=== PATIENT | male | born 1950 | race Caucasian/White ===

== ENCOUNTER 2018-09-11 07:57 | Day surgery (SDC) | payer MEDICARE, OTHER ==
[2018-09-11] MEDS ORDERED: MIDAZOLAM 2 MG/2 ML VIAL IVP ONE (07:58)
[2018-09-11] MEDS ORDERED: HYDROmorphone 1 MG/ML SYRINGE IM ONE (07:58)
[2018-09-11] MEDS ORDERED: LACTATED RINGERS 1,000 ML IV ONE (08:28)
[2018-09-11 10:15] VITALS: BP 92/62
== END 2018-09-11 07:58 | disposition home or self-care (01) ==
LOC: SDS 07:57
PROVIDERS: ATTEND Internal Medicine Gastroenterology
PROC: 0DBN8ZZ Excision of Sigmoid Colon, Via Natural or Artificial Opening Endoscopic (ICD-10-PCS; 2018-09-11)
PROC: 0DBM8ZZ Excision of Descending Colon, Via Natural or Artificial Opening Endoscopic (ICD-10-PCS; principal; 2018-09-11 09:15)
DX: Z12.11 Encounter for screening for malignant neoplasm of colon (principal); D12.4 Benign neoplasm of descending colon; D12.5 Benign neoplasm of sigmoid colon; K57.30 Diverticulosis of large intestine without perforation or abscess without bleeding; K63.89 Other specified diseases of intestine; I10 Essential (primary) hypertension; G47.30 Sleep apnea, unspecified; E66.9 Obesity, unspecified; Z68.37 Body mass index [BMI] 37.0-37.9, adult; E78.5 Hyperlipidemia, unspecified; M17.10 Unilateral primary osteoarthritis, unspecified knee; M25.511 Pain in right shoulder; R61 Generalized hyperhidrosis; Z87.891 Personal history of nicotine dependence; H93.19 Tinnitus, unspecified ear
CPT/HCPCS: 45380; J1170; J7120

== ENCOUNTER 2020-03-02 14:06 | Outpatient (CLI) | payer MEDICARE, OTHER ==
--- NOTE | 2020-03-02 16:34 | XRAY Report ---
PROCEDURE: Shoulder 3 View RT INDICATIONS: POST-OP R SHOULDER REPLACEMENT TECHNIQUE: 3 views of the shoulder were acquired. COMPARISON: None. FINDINGS: Bones: Postsurgical changes are seen from a conventional total shoulder arthroplasty. There is grzegorz l alignment without signs of loosening. No acute fracture is identified. No significant heterotopic o ssification is seen. The included ribs are grossly intact. Soft tissues: No suspicious soft tissue calcifications. IMPRESSION: Right total shoulder arthroplasty with expected alignment. Reviewed by: Dani Melvin MD on 03/02/2020 4:32 PM PST Approved by: Dani Melvin MD on 03/02/2020 4:32 PM PST Station ID: [id number]
== END 2020-03-02 14:07 | disposition home or self-care (01) ==
LOC: DI.N 14:06
PROVIDERS: ATTEND Internal Medicine
DX: Z96.611 Presence of right artificial shoulder joint (principal)

== ENCOUNTER 2020-04-13 08:04 | Outpatient (CLI) | payer MEDICARE, OTHER ==
[2020-04-13 13:02] LABS: BASOPHILS % (AUTO) 0.6 %; EOSINOPHILS # (AUTO) 0.4 10^3/uL (0.0-0.7); EOSINOPHILS % (AUTO) 5.4 %; HGB - HEMOGLOBIN 14.9 g/dL (14.0-18.0); LYMPHOCYTES # (AUTO) 1.4 10^3/uL (1.5-3.5); LYMPHOCYTES % (AUTO) 21.5 %; MEAN CORPUSCULAR HEMOGLOBIN 31.5 pg (27.0-31.0); MEAN CORPUSCULAR HGB CONC 33.4 g/dL (32.0-36.0); MEAN CORPUSCULAR VOLUME 94.3 fL (80.0-94.0); MEAN PLATELET VOLUME 10.8 fL (7.4-11.4); MONOCYTES # (AUTO) 0.6 10^3/uL (0.0-1.0); MONOCYTES % (AUTO) 9.4 %; NEUTROPHILS # (AUTO) 4.1 10^3/uL (1.5-6.6); NEUTROPHILS % (AUTO) 62.5 %; PLT - PLATELET COUNT 226 10^3/uL (130-450); RED BLOOD COUNT 4.73 10^6/uL (4.70-6.10); RED CELL DISTRIBUTION WIDTH 13.1 % (12.0-15.0); WHITE BLOOD COUNT 6.6 x10^3/uL (4.8-10.8)
[2020-04-13 13:34] LABS: ALBUMIN 4.3 g/dL (3.2-5.5); ALBUMIN/GLOBULIN RATIO 1.3 (1.0-2.2); ALKALINE PHOSPHATASE 51 IU/L (42-121); ALT ALANINE AMINOTRANSFERASE 30 IU/L (10-60); AST ASPARTATE AMINOTRANSFERASE 30 IU/L (10-42); BILIRUBIN,TOTAL 0.5 mg/dL (0.2-1.0); BUN - BLOOD UREA NITROGEN 18 mg/dL (6-20); CALCIUM 9.5 mg/dL (8.5-10.3); CARBON DIOXIDE - CO2 23 mmol/L (21-32); CHLORIDE 107 mmol/L (101-111); CHOL/HDL RATIO 3.9 (<5.0); CHOLESTEROL 155 mg/dL; CREATININE 1.1 mg/dL (0.6-1.2); GLUCOSE 110 mg/dL (70-100); HDL CHOLESTEROL 40 mg/dL; LDL CHOLESTEROL,CALCULATED 84 mg/dL; LDL/HDL RATIO 2.1 (<3.6); SODIUM 140 mmol/L (135-145); TOTAL PROTEIN 7.6 g/dL (6.7-8.2); VLDL CHOLESTEROL 31 mg/dL
== END 2020-04-13 08:05 | disposition home or self-care (01) ==
LOC: LAB.N 08:04
PROVIDERS: ATTEND Internal Medicine
DX: I10 Essential (primary) hypertension (principal); Z12.5 Encounter for screening for malignant neoplasm of prostate; E78.5 Hyperlipidemia, unspecified
CPT/HCPCS: 36415; 80053; 80061; 84443; 85025; G0103; 83721; 84153

== ENCOUNTER 2020-09-22 08:34 | Outpatient (CLI) | payer MEDICARE, OTHER | END 2020-09-22 23:59 | disposition home or self-care (01) | LOC: LAB.N 08:34 | PROVIDERS: ATTEND Nurse Practitioner | DX: R31.9 Hematuria, unspecified (principal) | CPT/HCPCS: 87086; 87181 ==

== ENCOUNTER 2021-05-03 07:05 | Outpatient (CLI) | payer MEDICARE, OTHER ==
[2021-05-03 12:03] LABS: BASOPHILS # (AUTO) 0.1 10^3/uL (0.0-0.1); BASOPHILS % (AUTO) 0.8 %; EOSINOPHILS # (AUTO) 0.4 10^3/uL (0.0-0.7); EOSINOPHILS % (AUTO) 5.6 %; HCT - HEMATOCRIT 47.5 % (42.0-52.0); HGB - HEMOGLOBIN 15.6 g/dL (14.0-18.0); LYMPHOCYTES # (AUTO) 1.4 10^3/uL (1.5-3.5); LYMPHOCYTES % (AUTO) 21.3 %; MEAN CORPUSCULAR HEMOGLOBIN 31.8 pg (27.0-31.0); MEAN CORPUSCULAR HGB CONC 32.8 g/dL (32.0-36.0); MEAN CORPUSCULAR VOLUME 96.7 fL (80.0-94.0); MEAN PLATELET VOLUME 10.4 fL (7.4-11.4); MONOCYTES # (AUTO) 0.6 10^3/uL (0.0-1.0); MONOCYTES % (AUTO) 9.6 %; NEUTROPHILS # (AUTO) 4.1 10^3/uL (1.5-6.6); NEUTROPHILS % (AUTO) 62.5 %; PLT - PLATELET COUNT 229 10^3/uL (130-450); RED BLOOD COUNT 4.91 10^6/uL (4.70-6.10); RED CELL DISTRIBUTION WIDTH 12.7 % (12.0-15.0); WHITE BLOOD COUNT 6.6 x10^3/uL (4.8-10.8)
[2021-05-03 12:33] LABS: ALBUMIN 4.6 g/dL (3.2-5.5); ALBUMIN/GLOBULIN RATIO 1.5 (1.0-2.2); ALKALINE PHOSPHATASE 62 IU/L (42-121); ALT ALANINE AMINOTRANSFERASE 32 IU/L (10-60); AST ASPARTATE AMINOTRANSFERASE 35 IU/L (10-42); BILIRUBIN,TOTAL 0.7 mg/dL (0.2-1.0); BUN - BLOOD UREA NITROGEN 20 mg/dL (6-20); CALCIUM 9.8 mg/dL (8.5-10.3); CARBON DIOXIDE - CO2 29 mmol/L (21-32); CHLORIDE 101 mmol/L (101-111); CHOL/HDL RATIO 2.8 (<5.0); CHOLESTEROL 131 mg/dL; CREATININE 1.2 mg/dL (0.6-1.2); GFR - MDRD 60 (>89); GLUCOSE 102 mg/dL (70-100); HDL CHOLESTEROL 46 mg/dL; LDL CHOLESTEROL,CALCULATED 73 mg/dL; LDL/HDL RATIO 1.6 (<3.6); POTASSIUM 4.1 mmol/L (3.5-5.0); SODIUM 138 mmol/L (135-145); TOTAL PROTEIN 7.7 g/dL (6.7-8.2); TRIGLYCERIDES 62 mg/dL; VLDL CHOLESTEROL 12 mg/dL
== END 2021-05-03 07:06 | disposition home or self-care (01) ==
LOC: LAB.N 07:05
PROVIDERS: ATTEND Internal Medicine
DX: E78.5 Hyperlipidemia, unspecified (principal); N40.1 Benign prostatic hyperplasia with lower urinary tract symptoms; I10 Essential (primary) hypertension
CPT/HCPCS: 36415; 80053; 80061; 83721; 84153; 85025

== ENCOUNTER 2021-08-09 07:08 | Outpatient (CLI) | payer MEDICARE, OTHER ==
--- NOTE | 2021-08-09 08:33 | XRAY Report ---
PROCEDURE: Lumbar Spine Complete INDICATIONS: BACK PX TECHNIQUE: 5 views of the lumbar spine were acquired. COMPARISON: None. FINDINGS: Bones: 5 [id number] vertebrae are present. Osteophytes are seen at multiple levels. There is d isc space narrowing at L1-2, L2-3, L4-5, and L5-S1. Facet arthrosis at L4-5 and L5-S1. There is a lar ge fused osteophyte on the right at L1-2. No vertebral body height loss. The sacroiliac joints are no rmal. Soft tissues: Overlying bowel gas pattern is normal. No suspicious soft tissue calcifications. IMPRESSION: 1. Multilevel disc disease. 2. Multilevel degenerative changes with osteophytes and facet arthrosis as above. 2. No acute osseous abnormality. Reviewed by: Dagoberto Rowland on 08/09/2021 8:32 AM PDT Approved by: Dagoberto Rowland on 08/09/2021 8:32 AM PDT Station ID: [id number]
== END 2021-08-09 07:09 | disposition home or self-care (01) ==
LOC: DI.N 07:08
PROVIDERS: ATTEND Nurse Practitioner
DX: M47.816 Spondylosis without myelopathy or radiculopathy, lumbar region (principal); M47.817 Spondylosis without myelopathy or radiculopathy, lumbosacral region

== ENCOUNTER 2021-10-05 13:30 | Outpatient (CLI) | payer MEDICARE, OTHER ==
[2021-10-05 17:56] LABS: BILIRUBIN,URINE NEGATIVE (NEGATIVE); GLUCOSE, URINE (UA) NEGATIVE (NEGATIVE); KETONES,URINE (UA) NEGATIVE (NEGATIVE); LEUKOCYTE ESTERASE, URINE NEGATIVE (NEGATIVE); NITRITE,URINE NEGATIVE (NEGATIVE); OCCULT BLOOD,URINE NEGATIVE (NEGATIVE); PROTEIN,URINE NEGATIVE (NEGATIVE); UROBILINOGEN,URINE 0.2 (NORMAL) E.U./dL (NORMAL)
[2021-10-05 17:57] LABS: CLARITY,URINE CLEAR (CLEAR)
[2021-10-05 17:58] LABS: PSA FREE 0.554 ng/mL (0.16-2.81)
[2021-10-05 17:59] LABS: PSA TOTAL 1.613 ng/mL (0.000-2.000)
[2021-10-05 18:14] LABS: BACTERIA,URINE None Seen /HPF (None Seen); RBC,URINE 0-5 /HPF (0-5); SQUAMOUS EPITHELIAL CELL,UR FEW Squamous (<= Few); WBC,URINE 0-3 /HPF (0-3)
== END 2021-10-05 13:31 | disposition home or self-care (01) ==
LOC: LAB.N 13:30
PROVIDERS: ATTEND Internal Medicine
DX: R97.20 Elevated prostate specific antigen [PSA] (principal)
CPT/HCPCS: 36415; 81001; 84153; 84154; 87086

== ENCOUNTER 2022-05-19 10:38 | Outpatient (CLI) | payer MEDICARE, OTHER ==
[2022-05-19 11:31] VITALS: BP 120/72
--- NOTE | 2022-05-19 11:31 | SLEEP CARE CONSULTATION ---
Information from patient questionnaire entered by Funmi Nielson. I have reviewed and concur with the information entered by Funmi Nielson. This document represents the service I personally performed and the decisions made by me, Jinny Fong ARNP. History of Present Illness Service Date and Time: 05/19/2022 1038 Reason for Visit: New patient, sleep apnea on CPAP therapy Chief Complaint: reports: Other (MEDICARE REQUIRED IT ) Date of Onset: 9YRS Usual bedtime: 1030PM Time it takes to fall asleep: 5MIN Snores at night: No Observed to quit breathing while asleep: No Sleeps alone due to snoring: No Number of times waking at night: 1 Reasons for waking at night: reports: Bathroom Toss, Turn, or Twitch while sleeping: Yes Recalls having dreams: Yes Usually gets out of bed at: 0730 Feels refreshed in the morning: Yes Morning headache: Yes (RESOLVES AFTER 3 EXCEDRINS ) Sleepy or fatigued during the day: Yes Ever fallen asleep while driving: No Takes day naps: Yes Dreams during day naps: No Prior sleep studies: Yes (GAGAN 2009) Additional HPI information: AYLIN ZHANG was previously diagnosed to have severe, AHI 39.5, obstructive sleep apnea-hypopnea syndrome at [facility] on 02/13/2009 and comes in today to establish care for CPAP therapy. - Parasomnia Symptoms Ever been unable to move upon waking from sleep: No Walks in sleep: No Talks in sleep: No Ever acted out dreams in sleep: No Ever felt weak in the knees when startled or emotional: No Bothered by creepy, crawly, restless sensations in legs: No Problems with memory or concentration: No CPAP Compliance Data - Data Reviewed with Patient Average duration of nightly device use: 8 hours Compliance rate %: 98 (243/246 days used) Current pressure setting (cmH2O): 10-16 (avg 11.7) Humidity settin Average residual AHI: 1.9 Compliance data discussion: He has a ResMed Airsense 11. He is getting supplies regularly from [employer]. He is using his CPAP every night and if he takes a nap. He is using a nasal cushion, ResMed Airfit N30i. He washes the cushion weekly and it lasts for about 6 months. He is using a chin strap which has helped with mask fit issues. We were unable to get access to his device online. We obtained some information from the machine and I recorded it here. We will continue to try to get access to get full therapy data through his DME. Subjective Patient concerns: denies: aerophagia, mask discomfort, air blowing in eyes, mask leak noise, condensation in mask/hose, nasal congestion, dry mouth, nose, throat, epistaxis Observed to snore while using device: No Current pressure setting perceived as: comfortable On therapy, patient: reports: sleeping better, awakening more refreshed, being more awake and alert during the day, more rested overall. denies: drowsiness while driving Initial [place] Sleepiness Scale score: 7 (05/18/22) Past Medical History Past Medical History: reports: Arthritis, Other (enlarged prostate) Social History The patient's occupation is a RE. Patient is and lives in [place]. Have you smoked in the past 12 months: No Years of smokin Quit date: 1981 Alcohol use: Yes Alcohol amount and frequency: 1 BEER ONCE A MONTH Caffeine use: Yes Caffeine amount and frequency: 1 CUP DAILY Family History Family history of sleep disordered breathing: No Allergies and Home Medications Known drug allergies: Yes (IODINE ) Drug allergies reviewed: Yes (iodine, topically) Home medication list reviewed: Yes (see updated list in EMR) Review of Systems Weight loss over past 5 years: 40 Cardiovascular: denies: high blood pressure (came off meds after losing weight) Gastrointestinal: denies: heartburn Neurological: reports: headaches Psychiatric: denies: anxiety, depression Ear/Nose/Throat: reports: tonsillectomy Endocrine: denies: thyroid disease Physical Exam Vital signs obtained and entered by: FUNMI Win MA Blood Pressure: 120/72 (LEFT ARM) Cuff size: regular Heart Rate: 77 O2 Saturation: 96 Height: 6 ft 1 in Weight: 242 lb 12.8 oz Body Mass Index: 32.0 BMI Classification: Obese Neck circumference: 17.75 Heart: regular rate and rhythm Lungs: clear bilaterally Impression and Plan 1. Obstructive Sleep Apnea-Hypopnea Syndrome, severe, with good treatment compliance and good apnea control. On CPAP therapy, the patient has better sleep quality and is more rested overall. He has been a patient at [facility]. He is here to establish with a new provider since they have closed their office. We had some difficulties obtaining his therapy report, could not get access to his data. We did obtain some data from his machine and will continue to try to get the full data from his DME, [employer]. Patient has significant improvement of their sleep apnea and are satisfied with current CPAP therapy. Patient denies problems with oral dryness, nasal congestion, epistaxis, skin irritation or aerophagia. Patient's apnea severity and rationale for treatment to reduce apnea, improve sleep quality and reduce cardiovascular and cerebrovascular events was reviewed. * Continue auto CPAP pressure at 10-16 cmH2O * Update supplies * Notify me if snoring with mask or feeling that the pressure is too much or too little * Attempt to lose weight * Call this office if any problems using CPAP * Return for follow up in 1 year, or sooner if concerns arise Counseling Topics: Spare mask, Weight loss health impact Visit Type: In Office Time Spent with Patient (minutes): 31 Provider Statement: I spent 100% of the Face to Face Visit with the patient with greater than 50% spent counseling the patient and coordination of care.
== END 2022-05-19 10:39 | disposition home or self-care (01) ==
LOC: SC 10:38
PROVIDERS: ATTEND Nurse Practitioner Family
DX: G47.33 Obstructive sleep apnea (adult) (pediatric) (principal); Z87.891 Personal history of nicotine dependence; E66.9 Obesity, unspecified; Z68.32 Body mass index [BMI] 32.0-32.9, adult
CPT/HCPCS: 99203; G0463; 99212

== ENCOUNTER 2022-05-24 07:19 | Outpatient (CLI) | payer MEDICARE, OTHER ==
[2022-05-24 11:51] LABS: BASOPHILS # (AUTO) 0.1 10^3/uL (0.0-0.1); EOSINOPHILS # (AUTO) 0.7 10^3/uL (0.0-0.7); EOSINOPHILS % (AUTO) 11.6 %; HGB - HEMOGLOBIN 14.8 g/dL (14.0-18.0); LYMPHOCYTES # (AUTO) 1.3 10^3/uL (1.5-3.5); LYMPHOCYTES % (AUTO) 22.3 %; MEAN CORPUSCULAR HEMOGLOBIN 32.2 pg (27.0-31.0); MEAN CORPUSCULAR HGB CONC 33.6 g/dL (32.0-36.0); MEAN CORPUSCULAR VOLUME 95.9 fL (80.0-94.0); MEAN PLATELET VOLUME 10.5 fL (7.4-11.4); MONOCYTES # (AUTO) 0.6 10^3/uL (0.0-1.0); MONOCYTES % (AUTO) 10.7 %; NEUTROPHILS # (AUTO) 3.2 10^3/uL (1.5-6.6); NEUTROPHILS % (AUTO) 54.1 %; PLT - PLATELET COUNT 223 10^3/uL (130-450); RED BLOOD COUNT 4.59 10^6/uL (4.70-6.10)
[2022-05-24 11:59] LABS: ALBUMIN 4.4 g/dL (3.2-5.5); ALBUMIN/GLOBULIN RATIO 1.3 (1.0-2.2); ALKALINE PHOSPHATASE 48 IU/L (42-121); ALT ALANINE AMINOTRANSFERASE 33 IU/L (10-60); AST ASPARTATE AMINOTRANSFERASE 41 IU/L (10-42); BILIRUBIN,TOTAL 0.7 mg/dL (0.2-1.0); BUN - BLOOD UREA NITROGEN 23 mg/dL (6-20); CALCIUM 9.8 mg/dL (8.5-10.3); CARBON DIOXIDE - CO2 26 mmol/L (21-32); CHLORIDE 107 mmol/L (101-111); CHOLESTEROL 136 mg/dL; CREATININE 1.2 mg/dL (0.6-1.2); GFR - MDRD 59 (>89); GLUCOSE 99 mg/dL (70-100); HDL CHOLESTEROL 46 mg/dL; LDL CHOLESTEROL,CALCULATED 69 mg/dL; LDL/HDL RATIO 1.5 (<3.6); POTASSIUM 4.1 mmol/L (3.5-5.0); SODIUM 139 mmol/L (135-145); TOTAL PROTEIN 7.8 g/dL (6.7-8.2); TRIGLYCERIDES 104 mg/dL; VLDL CHOLESTEROL 21 mg/dL
== END 2022-05-24 07:20 | disposition home or self-care (01) ==
LOC: LAB.N 07:19
PROVIDERS: ATTEND Internal Medicine
DX: I10 Essential (primary) hypertension (principal); N40.1 Benign prostatic hyperplasia with lower urinary tract symptoms; E78.5 Hyperlipidemia, unspecified
CPT/HCPCS: 36415; 80053; 80061; 83721; 84153; 85025

== ENCOUNTER 2022-09-05 12:09 | Outpatient (CLI) | payer MEDICARE, OTHER | END 2022-09-05 23:59 | disposition critical access hospital (66) | LOC: EMS 12:09 | DX: R55 Syncope and collapse (principal); R20.2 Paresthesia of skin; R42 Dizziness and giddiness; R53.83 Other fatigue | CPT/HCPCS: A0425; A0429 ==

== ENCOUNTER 2022-09-05 12:29 | Emergency (ER) | payer MEDICARE, OTHER ==
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
[2022-09-05 14:12] LABS: BASOPHILS % (AUTO) 0.2 %; EOSINOPHILS # (AUTO) 0.1 10^3/uL (0.0-0.7); HCT - HEMATOCRIT 37.4 % (42.0-52.0); HGB - HEMOGLOBIN 12.4 g/dL (14.0-18.0); LYMPHOCYTES # (AUTO) 0.8 10^3/uL (1.5-3.5); MEAN CORPUSCULAR HEMOGLOBIN 32.1 pg (27.0-31.0); MEAN CORPUSCULAR HGB CONC 33.2 g/dL (32.0-36.0); MEAN CORPUSCULAR VOLUME 96.9 fL (80.0-94.0); MEAN PLATELET VOLUME 9.5 fL (7.4-11.4); MONOCYTES # (AUTO) 0.6 10^3/uL (0.0-1.0); MONOCYTES % (AUTO) 4.6 %; NEUTROPHILS # (AUTO) 11.9 10^3/uL (1.5-6.6); NEUTROPHILS % (AUTO) 87.6 %; PLT - PLATELET COUNT 209 10^3/uL (130-450); RED BLOOD COUNT 3.86 10^6/uL (4.70-6.10); RED CELL DISTRIBUTION WIDTH 12.9 % (12.0-15.0); WHITE BLOOD COUNT 13.6 x10^3/uL (4.8-10.8)
[2022-09-05 14:31] LABS: ALBUMIN 3.6 g/dL (3.2-5.5); ALBUMIN/GLOBULIN RATIO 1.2 (1.0-2.2); BILIRUBIN,TOTAL 0.6 mg/dL (0.2-1.0); CALCIUM 8.5 mg/dL (8.5-10.3); CREATININE 1.1 mg/dL (0.6-1.2); POTASSIUM 3.9 mmol/L (3.5-5.0); TOTAL PROTEIN 6.5 g/dL (6.7-8.2)
--- NOTE | 2022-09-05 15:44 | XRAY Report ---
PROCEDURE: Chest 1 View X-Ray INDICATIONS: Chest Pain TECHNIQUE: One view of the chest was acquired. COMPARISON: None. FINDINGS: Surgical changes and devices: None. Lungs and pleura: Interstitial thickening in the mid and lower lung zones. No dense consolidation, e ffusion, or pneumothorax. [place] volumes. Mediastinum: Mild cardiomegaly. Normal central vessels and mediastinal contour appear normal. Bones and chest wall: No suspicious bony lesions. Overlying soft tissues appear unremarkable. IMPRESSION: Mild interstitial thickening in the mid and lower lung zones may be secondary to low lung volumes or minor interstitial edema. Correlate clinically. No radiographic evidence of acute chest trauma. Reviewed by: Fatou Chacon MD on 09/05/2022 2:43 PM PARK Approved by: Fatou Chacon MD on 09/05/2022 2:43 PM PARK Station ID: [id number]
--- NOTE | 2022-09-05 15:45 | XRAY Report ---
PROCEDURE: Femur 2V RT INDICATIONS: fall, leg pain TECHNIQUE: 2 views of the femur were acquired. COMPARISON: None. FINDINGS: Bones: No acute fractures. Knee arthroplasty components are in position. No visible dislocation. Soft tissues: Dystrophic calcifications around the right knee. No radiodense foreign bodies in the s oft tissue. IMPRESSION: No femur fracture. Reviewed by: Fatou Chacon MD on 09/05/2022 2:44 PM PARK Approved by: Fatou Chacon MD on 09/05/2022 2:44 PM PARK Station ID: [id number]
--- NOTE | 2022-09-05 15:53 | CT Report ---
PROCEDURE: HEAD WO INDICATIONS: syncope, fall TECHNIQUE: Noncontrast 4.5 mm thick angled axial sections acquired from the foramen magnum to the vertex. For r adiation dose reduction, the following was used: automated exposure control, adjustment of mA and/or kV according to patient size. COMPARISON: None. FINDINGS: Image quality: Excellent. CSF spaces: Basal cisterns are patent. No extra-axial fluid collections. Ventricles are normal in size and shape. Brain: No midline shift. No intracranial masses or hemorrhage. [place]-white matter interface is norm al. Skull and face: Calvarium and visualized facial bones are intact, without suspicious lesions. Sinuses: Mild mucosal thickening of the maxillary sinuses, ethmoid air cells, and left frontal sinus . Mastoid cavities are normally aerated. IMPRESSION: No CT evidence of acute intracranial process. No fractures or significant soft tissue injury visible. Reviewed by: Fatou Chacon MD on 09/05/2022 2:52 PM AKKILLIAN Approved by: Fatou Chacon MD on 09/05/2022 2:52 PM AKDT Station ID: [id number]
[2022-09-05 16:32] VITALS: BP 134/71
== END 2022-09-05 16:32 | disposition home or self-care (01) ==
LOC: ED 12:29
DX: R55 Syncope and collapse (principal); S80.11XA Contusion of right lower leg, initial encounter; S76.311A Strain of muscle, fascia and tendon of the posterior muscle group at thigh level, right thigh, initial encounter; V86.49XA Person injured while boarding or alighting from other special all-terrain or other off-road motor vehicle, initial encounter; Y93.53 Activity, golf; Y92.39 Other specified sports and athletic area as the place of occurrence of the external cause
CPT/HCPCS: 36415; 80053; 83690; 84484; 85025; 93005; 99283; 99284

== ENCOUNTER 2022-09-05 16:39 | Emergency (ER) | payer MEDICARE, OTHER ==
--- NOTE | 2022-09-05 17:49 | ED Physician Documentation ---
History of Present Illness - Stated complaint Stated Complaint: FALL - Chief complaint Chief Complaint: Neuro - History obtained from History obtained from: Patient, Family - History of Present Illness Timing: Today Pain level max: 0 Pain level now: 0 - Additonal information Additional information: 72-year-old male had just been discharged from the emergency department after a hamstring strain and contusion. He was using crutches to exit the building and he became lightheaded and dizzy. He had a near syncopal episode. Did not actually pass out. No injury. Currently asymptomatic. He states he has not eaten or drank much today. No chest pain. No shortness of breath. No numbness or tingling. Review of Systems Constitutional: denies: Fever, Chills Nose: denies: Rhinorrhea / runny nose, Congestion Throat: denies: Sore throat Cardiac: denies: Chest pain / pressure, Palpitations Respiratory: denies: Dyspnea, Cough GI: denies: Nausea, Vomiting, Diarrhea Musculoskeletal: denies: Neck pain, Back pain Neurologic: denies: Headache PD PAST MEDICAL HISTORY - Past Medical History Cardiovascular: Hypertension, High cholesterol, Arrhythmia Respiratory: Sleep apnea, CPAP use Endocrine/Autoimmune: None GI: None : None HEENT: Chronic vision loss Psych: None Musculoskeletal: Osteoarthritis Derm: None - Past Surgical History General: Other Ortho: Knee replacement, Other HEENT: Cataracts, Tonsil/Adenoidectomy - Present Medications Home Medications: Ambulatory Orders Medication Instructions Recorded Confirmed Glucosamine/Chondr Jacobo A Sod [Osteo 1 each PO DAILY 08/14/12 09/05/22 Bi-Flex Caplet] Multivitamin [Multivitamins] 1 each PO DAILY 08/14/12 09/05/22 Simvastatin [Zocor] 40 mg PO QPM 08/14/12 09/05/22 Vitamin B Complex [B Complex] 1 each PO DAILY 10/17/12 09/05/22 [place] 3/Dha/Epa/Other Om3/D3 1 tab PO DAILY 09/10/18 09/05/22 [Wellbaby Dha-Vitamin D3 Drops] Ascorbic Acid [Vitamin C] See Rx Instructions .ROUTE .COMPLEX 05/19/22 09/05/22 Tamsulosin [Flomax] See Rx Instructions .ROUTE .COMPLEX 05/19/22 09/05/22 Ubidecarenone [Co Q-10] 300 mg PO DAILY 09/05/22 09/05/22 - Allergies Allergies/Adverse Reactions: Allergies Allergy/AdvReac Type Severity Reaction Status Date / Time iodine AdvReac Itching Verified 09/05/22 16:46 PD ED PE NORMAL - Vitals Vital signs reviewed: Yes - General General: Alert and oriented X 3, No acute distress - HEENT HEENT: PERRL, Moist mucous membranes - Neck Neck: Supple, no meningeal sign - Cardiac Cardiac: RRR, Strong equal pulses - Respiratory Respiratory: No respiratory distress, Clear bilaterally - Abdomen Abdomen: Soft, Non tender, Non distended - Derm Derm: Warm and dry - Extremities Extremities: No edema, No calf tenderness / cord - Neuro Neuro: Alert and oriented X 3 - Psych Psych: Normal mood, Normal affect Results - Vitals Vitals: Vital Signs - 24 hr 09/05/22 09/05/22 09/05/22 16:44 17:45 18:00 Temperature 36.5 C Heart Rate 74 77 Heart Rate [ 83 Sitting] Heart Rate [ 89 Standing] Heart Rate [ 74 Supine] Respiratory 16 16 Rate Blood Pressure 141/74 H 144/80 H Blood Pressure 132/91 H [Sitting] Blood Pressure 134/72 H [Standing] Blood Pressure 165/92 H [Supine] O2 Saturation 99 97 Oxygen O2 Source Room air - Labs Labs: Laboratory Tests 09/05/22 16:46 POC Whole Bld Glucose 93 PD Medical Decision Making - ED course Complexity details: re-evaluated patient, considered differential (No ST elevation AR, no aortic dissection, no PE, no tension pneumothorax, no aortic aneurysm), d/w patient, d/w family ED course: 72-year-old male with what appears to be vasovagal syncope after being discharge d from the emergency department. He did have a syncopal event after his injury earlier, no acute findings on telemetry, EKG or laboratory testing that were just performed. Asymptomatic here. Feels better after eating and drinking. Negative orthostatics. No arrhythmia on telemetry. We will have him follow-up with his doctor for further care. Patient counseled regarding signs and symptoms for which I believe and urgent re-evaluation would be necessary. Patient with good understanding of and agreement to plan and is comfortable going home at this time This document was made in part using voice recognition software. While efforts are made to proofread this document, sound alike and grammatical errors may occur. Departure - Departure Disposition: 01 Home, Self Care Clinical Impression: Near syncope Condition: Good Instructions: ED Near Syncope Vasovagal Follow-Up: your,doctor in 1 week [Other] Comments: Please follow-up with your doctor for further care. Make sure you are drinking plenty of fluids. Please relax is much as possible today. Return if you worsen. Discharge Date/Time: 09/05/22 18:00
[2022-09-05 18:01] VITALS: BP 144/80
== END 2022-09-05 18:00 | disposition home or self-care (01) ==
LOC: ED 16:39
DX: R55 Syncope and collapse (principal); S80.11XA Contusion of right lower leg, initial encounter; S76.311A Strain of muscle, fascia and tendon of the posterior muscle group at thigh level, right thigh, initial encounter; V86.49XA Person injured while boarding or alighting from other special all-terrain or other off-road motor vehicle, initial encounter; Y93.53 Activity, golf; Y92.39 Other specified sports and athletic area as the place of occurrence of the external cause
CPT/HCPCS: 36415; 80053; 83690; 84484; 85025; 93005; 99283; 99284

== ENCOUNTER 2022-09-23 09:55 | Outpatient (CLI) | payer MEDICARE, OTHER ==
[2022-09-23 12:05] LABS: BASOPHILS % (AUTO) 0.6 %; EOSINOPHILS # (AUTO) 0.2 10^3/uL (0.0-0.7); EOSINOPHILS % (AUTO) 3.5 %; HCT - HEMATOCRIT 35.9 % (42.0-52.0); HGB - HEMOGLOBIN 11.7 g/dL (14.0-18.0); LYMPHOCYTES # (AUTO) 1.1 10^3/uL (1.5-3.5); LYMPHOCYTES % (AUTO) 15.9 %; MEAN CORPUSCULAR HEMOGLOBIN 31.8 pg (27.0-31.0); MEAN CORPUSCULAR HGB CONC 32.6 g/dL (32.0-36.0); MEAN CORPUSCULAR VOLUME 97.6 fL (80.0-94.0); MEAN PLATELET VOLUME 9.7 fL (7.4-11.4); MONOCYTES # (AUTO) 0.5 10^3/uL (0.0-1.0); MONOCYTES % (AUTO) 6.8 %; NEUTROPHILS % (AUTO) 72.5 %; PLT - PLATELET COUNT 406 10^3/uL (130-450); RED BLOOD COUNT 3.68 10^6/uL (4.70-6.10); RED CELL DISTRIBUTION WIDTH 13.9 % (12.0-15.0); WHITE BLOOD COUNT 6.9 x10^3/uL (4.8-10.8)
== END 2022-09-23 09:56 | disposition home or self-care (01) ==
LOC: LAB.N 09:55
PROVIDERS: ATTEND Physician Assistant
DX: D53.9 Nutritional anemia, unspecified (principal)
CPT/HCPCS: 36415; 82607; 82746; 85025

== ENCOUNTER 2022-10-04 15:22 | Outpatient (CLI) | payer MEDICARE, OTHER | END 2022-10-04 15:23 | disposition home or self-care (01) | LOC: LAB.N 15:22 | PROVIDERS: ATTEND Physician Assistant | DX: Z53.9 Procedure and treatment not carried out, unspecified reason (principal) ==

== ENCOUNTER 2022-10-05 08:00 | Outpatient (CLI) | payer MEDICARE, OTHER ==
[2022-10-05 18:10] LABS: FECAL OCCULT BLOOD (FIT) NEGATIVE (NEGATIVE)
== END 2022-10-05 23:59 | disposition home or self-care (01) ==
LOC: LAB.N 08:00
PROVIDERS: ATTEND Physician Assistant
DX: D64.9 Anemia, unspecified (principal)
CPT/HCPCS: 82274

== ENCOUNTER 2023-03-06 07:16 | Outpatient (CLI) | payer MEDICARE, OTHER ==
[2023-03-06 12:44] LABS: BASOPHILS # (AUTO) 0.1 10^3/uL (0.0-0.1); BASOPHILS % (AUTO) 0.9 %; EOSINOPHILS # (AUTO) 0.6 10^3/uL (0.0-0.7); EOSINOPHILS % (AUTO) 8.1 %; HCT - HEMATOCRIT 46.4 % (42.0-52.0); HGB - HEMOGLOBIN 15.1 g/dL (14.0-18.0); LYMPHOCYTES # (AUTO) 1.5 10^3/uL (1.5-3.5); MEAN CORPUSCULAR HEMOGLOBIN 31.2 pg (27.0-31.0); MEAN CORPUSCULAR HGB CONC 32.5 g/dL (32.0-36.0); MEAN CORPUSCULAR VOLUME 95.9 fL (80.0-94.0); MEAN PLATELET VOLUME 10.6 fL (7.4-11.4); MONOCYTES # (AUTO) 0.7 10^3/uL (0.0-1.0); NEUTROPHILS # (AUTO) 4.1 10^3/uL (1.5-6.6); NEUTROPHILS % (AUTO) 58.6 %; PLT - PLATELET COUNT 218 10^3/uL (130-450); RED BLOOD COUNT 4.84 10^6/uL (4.70-6.10); RED CELL DISTRIBUTION WIDTH 13.2 % (12.0-15.0); WHITE BLOOD COUNT 6.9 x10^3/uL (4.8-10.8)
[2023-03-06 13:38] LABS: % IRON SATURATION 19 % (20-50); ALBUMIN 4.7 g/dL (3.2-5.5); ALBUMIN/GLOBULIN RATIO 1.7 (1.0-2.2); ALKALINE PHOSPHATASE 54 IU/L (42-121); ALT ALANINE AMINOTRANSFERASE 36 IU/L (10-60); AST ASPARTATE AMINOTRANSFERASE 38 IU/L (10-42); BILIRUBIN,TOTAL 0.5 mg/dL (0.2-1.0); BUN - BLOOD UREA NITROGEN 23 mg/dL (6-20); CARBON DIOXIDE - CO2 27 mmol/L (21-32); CHLORIDE 106 mmol/L (101-111); CHOL/HDL RATIO 3.1 (<5.0); CHOLESTEROL 134 mg/dL; CREATININE 1.2 mg/dL (0.6-1.3); GFR - MDRD 59 (>89); GLUCOSE 103 mg/dL (74-104); HDL CHOLESTEROL 43 mg/dL; IRON 77 ug/dL (50-212); LDL CHOLESTEROL,CALCULATED 64 mg/dL; LDL/HDL RATIO 1.5 (<3.6); POTASSIUM 4.3 mmol/L (3.5-4.5); SODIUM 139 mmol/L (135-145); TOTAL IRON BINDING CAPACITY 400 ug/dL (250-450); TOTAL PROTEIN 7.5 g/dL (6.4-8.9); TRANSFERRIN 286 mg/dL (203-362); TRIGLYCERIDES 134 mg/dL (48-352); VLDL CHOLESTEROL 27 mg/dL
[2023-03-06 14:15] LABS: FERRITIN 107.3 ng/mL (23.9-336.2)
== END 2023-03-06 07:17 | disposition home or self-care (01) ==
LOC: LAB.N 07:16
PROVIDERS: ATTEND Internal Medicine
DX: E78.5 Hyperlipidemia, unspecified (principal); D64.9 Anemia, unspecified; Z12.5 Encounter for screening for malignant neoplasm of prostate
CPT/HCPCS: 36415; 80053; 80061; 82607; 82728; 83540; 84466; 85025; G0103; 83721; 84153

== ENCOUNTER 2023-05-25 08:09 | Outpatient (CLI) | payer MEDICARE, OTHER ==
[2023-05-25 11:53] LABS: BASOPHILS # (AUTO) 0.1 10^3/uL (0.0-0.1); BASOPHILS % (AUTO) 1.1 %; EOSINOPHILS # (AUTO) 0.3 10^3/uL (0.0-0.7); EOSINOPHILS % (AUTO) 5.7 %; HCT - HEMATOCRIT 43.9 % (42.0-52.0); HGB - HEMOGLOBIN 14.1 g/dL (14.0-18.0); LYMPHOCYTES % (AUTO) 18.1 %; MEAN CORPUSCULAR HEMOGLOBIN 31.2 pg (27.0-31.0); MEAN CORPUSCULAR HGB CONC 32.1 g/dL (32.0-36.0); MEAN CORPUSCULAR VOLUME 97.1 fL (80.0-94.0); MEAN PLATELET VOLUME 10.6 fL (7.4-11.4); MONOCYTES # (AUTO) 0.5 10^3/uL (0.0-1.0); MONOCYTES % (AUTO) 8.9 %; NEUTROPHILS # (AUTO) 3.7 10^3/uL (1.5-6.6); NEUTROPHILS % (AUTO) 65.8 %; PLT - PLATELET COUNT 223 10^3/uL (130-450); RED BLOOD COUNT 4.52 10^6/uL (4.70-6.10); RED CELL DISTRIBUTION WIDTH 13.1 % (12.0-15.0); WHITE BLOOD COUNT 5.6 x10^3/uL (4.8-10.8)
[2023-05-25 12:30] LABS: ALBUMIN 4.4 g/dL (3.2-5.5); ALBUMIN/GLOBULIN RATIO 1.5 (1.0-2.2); ALKALINE PHOSPHATASE 55 IU/L (42-121); ALT ALANINE AMINOTRANSFERASE 34 IU/L (10-60); AST ASPARTATE AMINOTRANSFERASE 41 IU/L (10-42); BILIRUBIN,TOTAL 0.6 mg/dL (0.2-1.0); BUN - BLOOD UREA NITROGEN 19 mg/dL (6-20); CALCIUM 9.6 mg/dL (8.5-10.3); CARBON DIOXIDE - CO2 28 mmol/L (21-32); CHLORIDE 105 mmol/L (101-111); CHOL/HDL RATIO 2.9 (<5.0); CHOLESTEROL 118 mg/dL; CREATININE 1.2 mg/dL (0.6-1.3); GFR - MDRD 59 (>89); GLUCOSE 95 mg/dL (74-104); HDL CHOLESTEROL 41 mg/dL; LDL CHOLESTEROL,CALCULATED 59 mg/dL; LDL/HDL RATIO 1.4 (<3.6); POTASSIUM 4.3 mmol/L (3.5-4.5); SODIUM 139 mmol/L (135-145); TOTAL PROTEIN 7.3 g/dL (6.4-8.9); TRIGLYCERIDES 91 mg/dL (48-352); VLDL CHOLESTEROL 18 mg/dL
== END 2023-05-25 08:10 | disposition home or self-care (01) ==
LOC: LAB.N 08:09
PROVIDERS: ATTEND Internal Medicine
DX: I10 Essential (primary) hypertension (principal); N40.1 Benign prostatic hyperplasia with lower urinary tract symptoms; E78.5 Hyperlipidemia, unspecified
CPT/HCPCS: 36415; 80053; 80061; 83721; 84153; 85025

== ENCOUNTER 2023-05-25 11:21 | Outpatient (CLI) | payer MEDICARE, OTHER ==
--- NOTE | 2023-05-25 11:40 | Sleep Patient Instructions ---
Sleep Center Visit Summary - Patient Visit Information Reason for Visit: Annual follow-up - Patient Instructions Additional Instructions: You will continue with CPAP therapy with pressure set at 10-16 cmH2O. A supply prescription will be updated with your DME. We encourage you to continue to try to lose weight. Please follow up with the sleep care office in 1 year. - Clinic Information Contact: [facility] [address] [place] [address] [email or web address] T: [phone]
--- NOTE | 2023-05-25 11:46 | SLEEP CARE CONSULTATION ---
Information from patient questionnaire entered by Funmi Nielson. I have reviewed and concur with the information entered by Funmi Nielson. This document represents the service I personally performed and the decisions made by me, Jinny Fong ARNP. History of Present Illness Service Date and Time: 05/25/2023 1121 Previous diagnosis: Severe, Obstructive Sleep Apnea-Hypopnea Syndrome AHI: 39.5 (in 2009) Reason for follow up: annual (LAST SEEN 05/2022) Equipment type: CPAP (RESMED Airsense 11, s/u 09/2021) Equipment obtained from: [employer] (getting supplies) Mask style: Nasal pillows Mask brand: Respironics (Dreamwear, medium cushion) Backup mask available: No (will keep old mask when replaced) Last cushion change: 1 week Prior sleep studies: Yes (GAGAN 2009) HPI additional information: AYLIN ZHANG was diagnosed to have severe, AHI 39.5, obstructive sleep apnea- hypopnea syndrome and returned today for CPAP therapy annual follow-up. Sleep Study - Results Prior sleep studies: Yes (GAGAN 2009) CPAP Compliance Data - Data Reviewed with Patient Average duration of nightly device use: 8 HRS 10 MINS Compliance rate %: 99 (05/23/22-05/22/23; 363/365 days used) Current pressure setting (cmH2O): 10-16 Average residual AHI: 1.2 Central apnea: 0.2 Obstructive apnea: 0.7 Average large leak: 3.5 L/min Subjective Patient concerns: denies: aerophagia, mask discomfort, air blowing in eyes, mask leak noise, condensation in mask/hose, nasal congestion, dry mouth, nose, throat, epistaxis Observed to snore while using device: No Current pressure setting perceived as: comfortable On therapy, patient: reports: sleeping better, awakening more refreshed, being more awake and alert during the day, more rested overall. denies: drowsiness while driving Initial [place] Sleepiness Scale score: 7 (05/18/22) Current [place] Sleepiness Scale score: 8 Allergies and Home Medications Known drug allergies: Yes (as listed) Drug allergies reviewed: Yes Home medication list reviewed: Yes ( Losartan 25 mg daily) Allergy and home medication list: Allergies iodine Adverse Reaction Itching Home Medications Medication Instructions Recorded Confirmed Last Taken Type Glucosamine/Chondr Jacobo A Sod [Osteo 1 each PO DAILY 08/14/12 09/05/22 10/17/12 History Bi-Flex Caplet] Multivitamin [Multivitamins] 1 each PO DAILY 08/14/12 09/05/22 10/17/12 History Simvastatin [Zocor] 40 mg PO QPM 08/14/12 09/05/22 09/10/18 History Vitamin B Complex [B Complex] 1 each PO DAILY 10/17/12 09/05/22 09/10/18 History [place] 3/Dha/Epa/Other Om3/D3 1 tab PO DAILY 09/10/18 09/05/22 Unknown History [[place] Dha-Vitamin D3 Drops] Ascorbic Acid [Vitamin C] See Rx Instructions .ROUTE .COMPLEX 05/19/22 09/05/22 Unknown History Tamsulosin [Flomax] See Rx Instructions .ROUTE .COMPLEX 05/19/22 09/05/22 Unknown History Ubidecarenone [Co Q-10] 300 mg PO DAILY 09/05/22 09/05/22 Unknown History Review of Systems Review of systems same as previous: No (hypertension) Physical Exam Vital signs obtained and entered by: JINNY ORTIZ Blood Pressure: 141/83 Cuff size: regular (right arm) Heart Rate: 67 O2 Saturation: 96 Height: 6 ft 1 in Weight: 259 lb 12.8 oz Weight change since last visit: 17 lb gain Body Mass Index: 34.2 BMI Classification: Obese Impression and Plan 1. Obstructive Sleep Apnea-Hypopnea Syndrome, severe, with good treatment compliance and good apnea control. On CPAP therapy, the patient has better sleep quality and is more rested overall. Patient has significant improvement of his sleep apnea and is satisfied with current CPAP therapy. He denies any problems or issues with his mask or machine at this time. We will follow-up with him next year. Patient's apnea severity and rationale for treatment to reduce apnea, improve sleep quality and reduce cardiovascular and cerebrovascular events was reviewed. He has hypertension. 2. Obesity, unspecified. Currently patients BMI is 34.2. He has gained weight. Obesity increases the risk of apnea, CPAP pressure requirements and overall health risks especially cardiovascular and diabetes. Thus patient is advised to lose weight. * Continue auto CPAP pressure at 10-16 cmH2O * Update supply prescription * Notify me if snoring with mask or feeling that the pressure is too much or too little * Attempt to lose weight * Call this office if any problems using CPAP * Return for follow up in 12 months, or sooner if concerns arise Counseling Topics: Spare mask, Weight loss health impact Prescriptions: Device supplies Follow up with Sleep Care in: 1 year Visit Type: In Office Time Spent with Patient (minutes): 21 Provider Statement: I spent 100% of the Face to Face Visit with the patient with greater than 50% spent counseling the patient and coordination of care.
[2023-05-25 11:47] VITALS: BP 141/83; O2SAT 96
== END 2023-05-25 11:22 | disposition home or self-care (01) ==
LOC: SC 11:21
PROVIDERS: ATTEND Nurse Practitioner Family
DX: G47.33 Obstructive sleep apnea (adult) (pediatric) (principal); E66.9 Obesity, unspecified; Z68.34 Body mass index [BMI] 34.0-34.9, adult; I10 Essential (primary) hypertension; E78.5 Hyperlipidemia, unspecified; N40.1 Benign prostatic hyperplasia with lower urinary tract symptoms
CPT/HCPCS: 36415; 80053; 80061; 84153; 85025; 99213; G0463; 83721; 99212

== ENCOUNTER 2023-06-06 08:55 | Outpatient (CLI) | payer MEDICARE, OTHER ==
--- NOTE | 2023-06-06 12:35 | XRAY Report ---
PROCEDURE: Lumbar Spine 2-3V INDICATIONS: DEGENERATIVE JOINT DISEASE, LUMBAR SPINE TECHNIQUE: 3 views of the lumbar spine were acquired. COMPARISON: 08/09/2021 FINDINGS: Bones: Moderate degenerative changes. Trace retrolisthesis of L1 on L2 and L2 on L3, likely degenerat marcel as seen previously. Vertebral body heights are well-maintained. No traumatic subluxation. Promine nt osteophytes are present, particularly on the right. Hip and sacroiliac degenerative changes also p resent. Soft tissues: Above average fecal loading. No suspicious calcifications. Vascular calcifications are seen. IMPRESSION: Moderate spondylosis. No acute radiographic abnormality. If there is high concern for further derange ment, consider MRI evaluation. Reviewed by: Hua Sawyer MD on 06/06/2023 12:34 PM PST Approved by: Hua Sawyer MD on 06/06/2023 12:34 PM PST Station ID: [id number]
== END 2023-06-06 08:56 | disposition home or self-care (01) ==
LOC: DI.N 08:55
PROVIDERS: ATTEND Internal Medicine
DX: M47.816 Spondylosis without myelopathy or radiculopathy, lumbar region (principal)

== ENCOUNTER 2023-09-08 06:13 | Day surgery (SDC) | payer MEDICARE, OTHER ==
[2023-09-08] MEDS: LACTATED RINGERS 1,000 ML IV ONE (06:20)
[2023-09-08] MEDS ORDERED: PROPOFOL 500 MG/50 ML 500 MG/50 ML VIAL ONE (07:04)
[2023-09-08] MEDS ORDERED: LIDOCAINE-MPF 2% 5 ML VIAL ONE (07:04)
--- NOTE | 2023-09-08 07:20 | ANESTHESIA ---
Pre-Anesthesia VS, & Labs - Diagnosis screening - Procedure colonoscopy Vital Signs: Temp Pulse Resp BP Pulse Ox O2 Flow Rate 36.6 C 72 16 126/80 99 09/08/23 06:25 09/08/23 06:25 09/08/23 06:25 09/08/23 06:25 09/08/23 06:25 Height: 6 ft 1 in Weight (kg): 112.4 kg Body Mass Index: 32.7 BMI Classification: Obese - NPO >8 hours Home Medications and Allergies Home Medications: Ambulatory Orders Losartan [Cozaar] 25 mg PO DAILY 09/07/23 Glucosamine/Chondr Jacobo A Sod [Osteo Bi-Flex Caplet] 1 each PO DAILY 08/14/12 Multivitamin [Multivitamins] 1 each PO DAILY 08/14/12 Simvastatin [Zocor] 40 mg PO QPM 08/14/12 Vitamin B Complex [B Complex] 1 each PO DAILY 10/17/12 [place] 3/Dha/Epa/Other Om3/D3 [Riskalyzeby Dha-Vitamin D3 Drops] 1 tab PO DAILY 09/10/18 Ascorbic Acid [Vitamin C] See Rx Instructions .ROUTE .COMPLEX 05/19/22 Tamsulosin [Flomax] See Rx Instructions .ROUTE .COMPLEX 05/19/22 Ubidecarenone [Co Q-10] 300 mg PO DAILY 09/05/22 Losartan [Cozaar] 25 mg PO DAILY 09/07/23 Allergies/Adverse Reactions: Allergies Allergy/AdvReac Type Severity Reaction Status Date / Time iodine AdvReac Itching Verified 09/05/22 16:46 Anes History & Medical History - Anesthetic History Anesthesia Complications: reports: No previous complications Family history of Anesthesia Complications: Denies Family history of Malignant Hyperthermia: Denies - Medical History Cardiovascular: reports: Hypertension, High cholesterol, Arrhythmia Pulmonary: reports: Sleep apnea, CPAP use Gastrointestinal: reports: None Urinary: reports: None Musculoskeletal: reports: Osteoarthritis Endocrine/Autoimmune: reports: None Skin: reports: None - Surgical History General: reports: Colonoscopy, Other Eyes Ears Nose Throat (EENT): reports: Cataracts, Tonsil/Adenoidectomy Orthopedic: reports: Knee replacement, Other Exam General: Alert, Oriented x3, Cooperative Dental: WNL Mouth Openin Fingerbreadth Neck Mobility: Normal Mallampati classification: II Thyromental Distance: 4-6 cm Respiratory: Lungs clear Cardiovascular: Regular rate Plan Anesthesia Type: General, Total IV Consent for Procedure(s) Verified and Reviewed: Yes Code Status: Attempt Resuscitation ASA classification: 3-Severe systemic disease Is this case an emergency?: No
[2023-09-08] MEDS: LACTATED RINGERS 800 ML IV ONE (08:01)
[2023-09-08 08:30] VITALS: BP 107/80; O2SAT 98
--- NOTE | 2023-09-08 10:00 | ANESTHESIA POST OP EVALUATION ---
Anesthesia Post Eval - Post Anesthesia Eval Vitals: Last Vital Signs Temp 36.3 C L 09/08/23 08:24 Pulse 70 09/08/23 08:24 Resp 16 09/08/23 08:24 BP 107/80 09/08/23 08:24 Pulse Ox 98 09/08/23 08:24 O2 Flow Rate CV Function Including HR & BP: Stable Pain Control: Satisfactory Nausea & Vomiting: Negative Mental Status: Baseline Respiratory Status: Airway Patent Hydration Status: Satisfactory Anesthesia Complications: None
== END 2023-09-08 06:14 | disposition home or self-care (01) ==
LOC: SDS 06:13
PROVIDERS: ATTEND Surgery
DX: Z12.11 Encounter for screening for malignant neoplasm of colon (principal); K57.30 Diverticulosis of large intestine without perforation or abscess without bleeding; G47.33 Obstructive sleep apnea (adult) (pediatric); E66.9 Obesity, unspecified; I10 Essential (primary) hypertension; Z68.33 Body mass index [BMI] 33.0-33.9, adult; Z86.010 Personal history of colon polyps
CPT/HCPCS: G0121; J7120

== ENCOUNTER 2023-12-06 09:02 | Outpatient (CLI) | payer MEDICARE, OTHER ==
--- NOTE | 2023-12-06 09:55 | XRAY Report ---
PROCEDURE: Knee 1-2V RT INDICATIONS: PAIN IN RIGHT KNEE TECHNIQUE: 2 views of the knee(s) were acquired. COMPARISON: None. FINDINGS: Bones: Patient is status post right total knee replacement. Surgical hardware appears in good positio n without evidence for hardware complication. There do appear to be some loose bodies present within the knee joint superior to the patella and posteriorly the largest measuring approximately 1 cm. Soft tissues: No knee joint effusion. No suspicious soft tissue calcifications or masses. IMPRESSION: 1. No evidence for acute osseous abnormality identified. 2. Satisfactory appearance of right total knee replacement. 3. Multiple loose bodies present within the knee joint to superior to the patella and posteriorly the largest measuring 1 cm. Reviewed by: Tito Ruiz MD on 12/06/2023 9:54 AM PDT Approved by: Tito Ruiz MD on 12/06/2023 9:54 AM PDT Station ID: [id number]
== END 2023-12-06 23:59 | disposition home or self-care (01) ==
LOC: DI.N 09:02
PROVIDERS: ATTEND Physician Assistant Medical
DX: M23.41 Loose body in knee, right knee (principal); Z96.651 Presence of right artificial knee joint